=== PATIENT | female | born 1965 | race Caucasian/White ===

== ENCOUNTER 2021-07-27 11:28 | Observation (INO) | payer BC, MEDICARE ==
[2021-07-27] MEDS: Sodium Chloride 0.9% 1,000 ML IV SCH ×3 (11:33→20:03)
[2021-07-27] MEDS ORDERED: Sodium Chloride 0.9% 10 ML Syringe FLUSH PRN (11:36)
[2021-07-27] MEDS ORDERED: Naloxone 0.4 MG/ML SDV IVPUSH STA (11:38)
[2021-07-27] MEDS ORDERED: Labetalol 20 MG/4 ML Syringe IVPUSH ONE (11:46)
[2021-07-27] MEDS ORDERED: Ondansetron 4 MG/2 ML SDV IVPUSH ONE (11:49)
[2021-07-27] MEDS ORDERED: Naloxone 0.4 MG/ML SDV IVPUSH PRN (11:53)
[2021-07-27 12:05] LABS: ACETAMINOPHEN 12 ug/mL (<2)
[2021-07-27] MEDS ORDERED: OLANZapine 10 MG Vial IM STA (12:15)
[2021-07-27] MEDS ORDERED: LORazepam 2 MG/ML SDV IVPUSH STA ×2 (12:15→12:52)
--- NOTE | 2021-07-27 12:15 | EDM.PDOC ---
ED HPI GENERAL MEDICAL PROBLEM - General Stated Complaint: DRUG OD Time Seen by Provider: 07/27/21 11:35 Source of Information: Reports: Patient History Limitations: Reports: No Limitations - History of Present Illness INITIAL COMMENTS - FREE TEXT/NARRATIVE: Patient presented to the ED via a private car. As soon as she got in the ED she said she need Narcan because she overdosed with oxycontin. She doesn't know how much oxycontin she took. Upon further questioning she apparently injected herself with 2 narcan (1 at home and 1 en route to the ED) According to the she has a history of chronic low back pain and is being treated at a pain clinic in [place]. She is taking oxycodone 60 mg 3 times daily PRN. 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 - Related Data Allergies Allergy/AdvReac Type Severity Reaction Status Date / Time No Known Allergies Allergy Verified 07/27/21 11:46 Home Meds: Home Meds LORazepam [Ativan] 0.5 mg PO TID PRN 07/27/21 [History] oxyCODONE HCl [Oxycodone HCl] 10 mg PO Q8H PRN 07/27/21 [History] oxyCODONE HCl [Oxycontin] 60 mg PO TID 07/27/21 [History] ED ROS GENERAL - Review of Systems Review Of Systems: See Below Constitutional: Reports: No Symptoms HEENT: Reports: No Symptoms Respiratory: Reports: No Symptoms Cardiovascular: Reports: No Symptoms Endocrine: Reports: No Symptoms GI/Abdominal: Reports: No Symptoms : Reports: No Symptoms Musculoskeletal: Reports: No Symptoms Skin: Reports: No Symptoms Neurological: Reports: No Symptoms Psychiatric: Reports: Agitation, Anxiety ED EXAM, GENERAL - Physical Exam Exam: See Below Exam Limited By: No Limitations General Appearance: Anxious Eye Exam: Bilateral Eye: Proptosis Ears: Normal External Exam, Normal Canal Nose: Normal Inspection, Normal Mucosa, No Blood Throat/Mouth: Normal Inspection, Normal Lips, Normal Teeth Head: Atraumatic, Normocephalic Neck: Normal Inspection, Supple, Non-Tender, Full Range of Motion Respiratory/Chest: No Respiratory Distress, Lungs Clear, Normal Breath Sounds Cardiovascular: Normal Peripheral Pulses, Regular Rate, Rhythm, No Edema, No Gallop, No JVD, No Murmur, No Rub GI/Abdominal: Normal Bowel Sounds, Soft, Non-Tender, No Organomegaly Back Exam: Normal Inspection, Full Range of Motion Extremities: Normal Inspection, Normal Range of Motion, Non-Tender Neurological: Alert, Oriented, CN II-XII Intact Psychiatric: Anxious, Other (agitated) Course - Vital Signs Text/Narrative:: Lab/Head CT result was reviewed and discussed with patient and her NS 1 L bolus Labetalol 20 mg IV x1 Zofran 4 mg IV x1 Naracan 0.4 mg IV x1 Zyprexa 10 mg IM x1 Ativan 3 mg IV Precedex 50 microgram IV x1 Head CT-questionable lacunar and subcortical infarct recommend MRI Last Recorded V/S: Last Vital Signs Temp 36.4 C 07/27/21 18:23 Pulse 65 07/27/21 18:23 Resp 17 07/27/21 18:23 BP 130/63 07/27/21 18:23 Pulse Ox 95 07/27/21 18:23 - Orders/Labs/Meds Orders: Active Orders 24 hr Category Date Time Status Nrsg Assess: Viol-S.Dest Rest [RC] Q1H Care 07/27/21 11:45 Active THYROXINE (T4) FREE, DIRECT Stat Lab 07/27/21 11:40 Received HYDROmorphone [Dilaudid] Med 07/27/21 19:01 Active 1 mg IVPUSH Q2H PRN Sodium Chloride 0.9% [Saline Flush] Med 07/27/21 11:36 Active 10 ml FLUSH ASDIRECTED PRN Medication Orders Hydromorphone HCl (Hydromorphone 2 Mg/Ml Sdv) 1 mg IVPUSH Q2H PRN PRN Reason: Pain Sodium Chloride (Normal Saline) 1,000 mls @ 125 mls/hr IV ASDIRECTED SANDRA Sodium Chloride (Normal Saline) 1,000 mls @ 125 mls/hr IV ASDIRECTED SANDRA Sodium Chloride (Sodium Chloride 0.9% 10 Ml Syringe) 10 ml FLUSH ASDIRECTED PRN PRN Reason: Keep Vein Open Labs: Laboratory Tests 07/27/21 07/27/21 07/27/21 Range/Units 11:40 11:40 11:40 WBC 7.9 (3.0-10.3) x10-3/uL RBC 5.11 (3.60-5.20) x10(6)uL Hgb 16.9 H (11.4-15.5) g/dL Hct 50.0 H (34.2-48.2) % MCV 97.8 (76.7-100.5) fL MCH 33.1 (23.9-33.9) pg MCHC 33.9 (31.9-34.8) g/dL RDW 12.7 (12.3-16.5) % Plt Count 265 (151-488) x10(3)uL MPV 7.3 (7.1-12.4) fL Neut % (Auto) 69.0 (30.8-76.2) % Lymph % (Auto) 24.2 (18.4-52.1) % [place] % (Auto) 6.4 (4.4-15.7) % Eos % (Auto) 0.0 L (0.6-8.1) % Baso % (Auto) 0.4 (0.2-1.5) % Neut # (Auto) 5.4 (1.5-6.3) x10-3/uL Lymph # (Auto) 1.9 (1.0-4.4) x10-3/uL [place] # (Auto) 0.5 (0.3-1.0) x10-3/uL Eos # (Auto) 0.0 (0.0-0.8) x10-3/uL Baso # (Auto) 0.0 (0.0-0.1) x10-3/uL Sodium 142 (135-145) mmol/L Potassium 3.6 (3.5-5.3) mmol/L Chloride 105 (100-110) mmol/L Carbon Dioxide 23 (21-32) mmol/L BUN 12 (7-18) mg/dL Creatinine 0.6 (0.55-1.02) mg/dL Est Cr Clr Drug Dosing TNP Estimated GFR (MDRD) > 60 (>60) BUN/Creatinine Ratio 20.0 (9-20) Glucose 160 H (80-116) mg/dL Calcium 8.6 (8.6-10.2) mg/dL Total Bilirubin 0.4 (0.1-1.3) mg/dL AST 30 H (5-25) IU/L ALT 45 H (12-36) U/L Alkaline Phosphatase 111 (56-112) IU/L Total Protein 7.7 (6.0-8.0) g/dL Albumin 4.0 (3.5-5.2) g/dL Globulin 3.7 g/dL Albumin/Globulin Ratio 1.1 TSH, Ultra Sensitive 0.35 L (0.36-3.74) IU/mL Salicylates (<2.8) mg/dL Urine Opiates Screen (NEGATIVE) Ur Buprenorphine Scrn (NEGATIVE) Ur Oxycodone Screen (NEGATIVE) Urine Methadone Screen (NEGATIVE) Ur Propoxyphene Screen (NEGATIVE) Acetaminophen 12 (<2) ug/mL Ur Barbiturates Screen (NEGATIVE) Ur Tricyclics Screen (NEGATIVE) Ur Phencyclidine Scrn (NEGATIVE) Ur Amphetamine Screen (NEGATIVE) U Methamphetamines Scrn (NEGATIVE) U Benzodiazepines Scrn (NEGATIVE) U Cocaine Metab Screen (NEGATIVE) U Marijuana (THC) Screen (NEGATIVE) Ethyl Alcohol 0.07 H (<0.03) % SARS-CoV-2 RNA (ADOLPH) (NEGATIVE) 07/27/21 07/27/21 07/27/21 Range/Units 11:40 12:00 15:50 WBC (3.0-10.3) x10-3/uL RBC (3.60-5.20) x10(6)uL Hgb (11.4-15.5) g/dL Hct (34.2-48.2) % MCV (76.7-100.5) fL MCH (23.9-33.9) pg MCHC (31.9-34.8) g/dL RDW (12.3-16.5) % Plt Count (151-488) x10(3)uL MPV (7.1-12.4) fL Neut % (Auto) (30.8-76.2) % Lymph % (Auto) (18.4-52.1) % [place] % (Auto) (4.4-15.7) % Eos % (Auto) (0.6-8.1) % Baso % (Auto) (0.2-1.5) % Neut # (Auto) (1.5-6.3) x10-3/uL Lymph # (Auto) (1.0-4.4) x10-3/uL [place] # (Auto) (0.3-1.0) x10-3/uL Eos # (Auto) (0.0-0.8) x10-3/uL Baso # (Auto) (0.0-0.1) x10-3/uL Sodium (135-145) mmol/L Potassium (3.5-5.3) mmol/L Chloride (100-110) mmol/L Carbon Dioxide (21-32) mmol/L BUN (7-18) mg/dL Creatinine (0.55-1.02) mg/dL Est Cr Clr Drug Dosing Estimated GFR (MDRD) (>60) BUN/Creatinine Ratio (9-20) Glucose (80-116) mg/dL Calcium (8.6-10.2) mg/dL Total Bilirubin (0.1-1.3) mg/dL AST (5-25) IU/L ALT (12-36) U/L Alkaline Phosphatase (56-112) IU/L Total Protein (6.0-8.0) g/dL Albumin (3.5-5.2) g/dL Globulin g/dL Albumin/Globulin Ratio TSH, Ultra Sensitive (0.36-3.74) IU/mL Salicylates 5.5 (<2.8) mg/dL Urine Opiates Screen Positive H (NEGATIVE) Ur Buprenorphine Scrn Negative (NEGATIVE) Ur Oxycodone Screen Positive H (NEGATIVE) Urine Methadone Screen Negative (NEGATIVE) Ur Propoxyphene Screen Negative (NEGATIVE) Acetaminophen (<2) ug/mL Ur Barbiturates Screen Negative (NEGATIVE) Ur Tricyclics Screen Negative (NEGATIVE) Ur Phencyclidine Scrn Negative (NEGATIVE) Ur Amphetamine Screen Negative (NEGATIVE) U Methamphetamines Scrn Negative (NEGATIVE) U Benzodiazepines Scrn Positive H (NEGATIVE) U Cocaine Metab Screen Negative (NEGATIVE) U Marijuana (THC) Screen Positive H (NEGATIVE) Ethyl Alcohol (<0.03) % SARS-CoV-2 RNA (ADOLPH) Negative (NEGATIVE) Meds: Medications Generic Name Dose Route Start Last Admin Trade Name Freq PRN Reason Stop Dose Admin Hydromorphone HCl 1 mg 07/27/21 19:01 Hydromorphone 2 Mg/Ml Sdv IVPUSH Q2H PRN Pain Sodium Chloride 1,000 mls @ 125 mls/hr 07/27/21 18:30 Normal Saline IV ASDIRECTED SANDRA Sodium Chloride 1,000 mls @ 125 mls/hr 07/27/21 18:30 Normal Saline IV ASDIRECTED SANDRA Sodium Chloride 10 ml 07/27/21 11:36 Sodium Chloride 0.9% 10 Ml Syringe FLUSH ASDIRECTED PRN Keep Vein Open Discontinued Medications Generic Name Dose Route Start Last Admin Trade Name Pretty PRN Reason Stop Dose Admin Sodium Chloride 1,000 mls @ 999 mls/hr 07/27/21 11:45 07/27/21 13:30 Normal Saline IV 50 mls/hr ASDIRECTED SANDRA Infusion Sodium Chloride 1,000 mls @ 125 mls/hr 07/27/21 18:30 Normal Saline IV ASDIRECTED SANDRA Ketorolac Tromethamine 30 mg 07/27/21 12:56 07/27/21 13:00 Ketorolac 30 Mg/Ml Sdv IVPUSH 07/27/21 12:57 30 mg NOW STA Administration Ketorolac Tromethamine Confirm 07/27/21 12:57 07/27/21 13:08 Ketorolac 30 Mg/Ml Sdv Administered 07/27/21 12:58 Not Given Dose 30 mg .ROUTE .STK-MED ONE Labetalol HCl 20 mg 07/27/21 11:46 07/27/21 16:23 Labetalol 20 Mg/4 Ml Syringe IVPUSH 07/27/21 11:47 Not Given ONETIME ONE Protocol Lorazepam 1 mg 07/27/21 12:15 07/27/21 12:22 Lorazepam 2 Mg/Ml Sdv IVPUSH 07/27/21 12:16 1 mg NOW STA Administration Lorazepam 2 mg 07/27/21 12:52 07/27/21 12:53 Lorazepam 2 Mg/Ml Sdv IVPUSH 07/27/21 12:53 2 mg NOW STA Administration Morphine Sulfate 4 mg 07/27/21 12:56 07/27/21 16:22 Morphine 4 Mg/Ml Vial IVPUSH 07/27/21 12:57 Not Given NOW STA Morphine Sulfate 5 mg 07/27/21 13:02 07/27/21 13:03 Morphine 10 Mg/Ml Sdv IVPUSH 07/27/21 13:03 5 mg ONETIME ONE Administration Naloxone HCl 0.4 mg 07/27/21 11:38 07/27/21 11:34 Naloxone 0.4 Mg/Ml Sdv IVPUSH 07/27/21 11:39 0.4 mg NOW STA Administration Naloxone HCl 0.4 mg 07/27/21 11:53 Naloxone 0.4 Mg/Ml Sdv IVPUSH ONETIME PRN Other Olanzapine 10 mg 07/27/21 12:15 07/27/21 12:23 Olanzapine 10 Mg Vial IM 07/27/21 12:16 10 mg NOW STA Administration Ondansetron HCl 4 mg 07/27/21 11:49 07/27/21 11:49 Ondansetron 4 Mg/2 Ml Sdv IVPUSH 07/27/21 11:50 4 mg ONETIME ONE Administration Departure - Departure Time of Disposition: 15:00 Disposition: Refer to Observation Condition: Good Clinical Impression: Opioid withdrawal, Chronic low back pain - Discharge Information Sepsis Event Note (ED) - Focused Exam Vital Signs: Vital Signs Temp Pulse Resp BP Pulse Ox 07/27/21 11:28 36.2 C 89 20 200/115 H 99 - My Orders Last 24 Hours: My Active Orders 07/27/21 11:36 Sodium Chloride 0.9% [Saline Flush] 10 ml FLUSH ASDIRECTED PRN 07/27/21 11:40 THYROXINE (T4) FREE, DIRECT Stat 07/27/21 11:45 Nrsg Assess: Dez-S.Dest Rest [RC] Q1H 07/27/21 19:01 HYDROmorphone [Dilaudid] 1 mg IVPUSH Q2H PRN - Assessment/Plan Last 24 Hours: My Active Orders 07/27/21 11:36 Sodium Chloride 0.9% [Saline Flush] 10 ml FLUSH ASDIRECTED PRN 07/27/21 11:40 THYROXINE (T4) FREE, DIRECT Stat 07/27/21 11:45 Nrsg Assess: Viol-S.Dest Rest [RC] Q1H 07/27/21 19:01 HYDROmorphone [Dilaudid] 1 mg IVPUSH Q2H PRN
--- NOTE | 2021-07-27 12:45 | PCM.SN.2 ---
- Free Text/Narrative Note: Was called to ER for this patient with a diagnosis of possible Oxycodone overdose. Patient very agitated and thrashing on cart. With several personel holding patient, I started a 20 jelco per sterile technique in right antecubital and secured site well, flushed with 10 cc's of salin with ease, narcan given immediately by RN per physicians order. I gave her Labatalol 20 mgs IV slowly at 1150, per Physician orders, Blood pressure 175/103. I restarted her IV with a 20 jelco at 1200 per sterile technique due to poor flow, flushed with 10cc's of saline with ease.
[2021-07-27] MEDS ORDERED: Ketorolac 30 MG/ML SDV IVPUSH STA (12:56)
[2021-07-27] MEDS ORDERED: Morphine 4 MG/ML VIAL IVPUSH STA (12:56)
[2021-07-27] MEDS ORDERED: Ketorolac 30 MG/ML SDV ONE (12:57)
--- NOTE | 2021-07-27 13:00 | PCM.SN.2 ---
- Free Text/Narrative Note: Was called to Trauma one to restart IV. #18 jelco started in left lower saphanous per sterile technique, secured and flushed with 10 cc's of normal saline.
[2021-07-27] MEDS ORDERED: Morphine 10 MG/ML SDV IVPUSH ONE (13:02)
--- NOTE | 2021-07-27 13:24 | CR ---
CHEST ONE VIEW INDICATION: Short of breath. AP portable upright view of the chest 07/27/21 - no comparisons. Heart, mediastinum and bony thorax are unremarkable. There is a nodular density at the right lung base, which may represent a nipple shadow - correlate clinically. A definite active infiltrate or effusion was not identified. Overlying EKG leads are noted. IMPRESSION: No definite acute process - findings as noted above. MTDD
[2021-07-27] MEDS ORDERED: Midazolam 1 MG/ML 2 ML SDV IV ONE (13:30)
[2021-07-27] MEDS ORDERED: HYDROmorphone 2 MG/ML SDV IV ONE (13:30)
[2021-07-27] MEDS ORDERED: Dexmedetomidine 200 MCG/2 ML SDV IV ONE (13:30)
[2021-07-27] MEDS ORDERED: Labetalol 100 MG/20 ML MDV IV ONE (13:30)
[2021-07-27] MEDS ORDERED: Propofol 200 MG/20 ML SDV IV ONE (13:30)
--- NOTE | 2021-07-27 15:26 | CT ---
CT HEAD WITHOUT CONTRAST INDICATION: Agitation. Spiral 3.75 mm axial sections were obtained through the brain without contrast with axial, sagittal and coronal reconstructions 07/27/21 - no comparisons. Total exam DLP was 1348.07 mGy/cm. The paranasal sinuses and mastoid air cells are well aerated. No cranial abnormality was identified. The orbits appear to be intact. Minimal internal carotid artery calcification is suggested. There is an appearance suggesting a lacunar infarct at the basilar portion of the basal ganglia on the left. Prominent distal occipital horn of the right lateral ventricle is suggested. There appears to be a low density abnormality in the anterior limb of the left internal capsule compatible with a lacunar infarct, possibly evolving. A subcortical infarct is noted at the frontal white matter on the left with an area of apparent thrombotic CVA suggested in the frontoparietal area on the left. This may represent an acute finding - evolving thrombotic CVA. The norton/white matter interface was otherwise unremarkable. No bleeding site or hematoma was seen. There is no shift of midline structures or ventricular abnormalities. There is also a cortical abnormal area of decreased density in the posterior parietal area on the left which may represent a thrombotic CVA focally in that area. Findings were compared with an MRI from 10/22/08. The areas of abnormal decreased density on the left appear all to be new compared with 2008. IMPRESSION: 1. Cerebrovascular disease with possible acute/evolving thrombotic CVA in the left frontoparietal area. Additional posterior left parietal norton matter decreased density focally suggests an additional area of evolving thrombotic CVA or previous thrombotic CVA. 2. Subcortical infarct right frontal likely on the basis of microvascular disease. 3. Possible evolving lacunar infarct anterior limb of left internal capsule. 4. Possible lacunar infarct inferior portion of the left basal ganglia. Report was called to Dr. Norwood at 1453 hours 07/27/21. [facility]
--- NOTE | 2021-07-27 16:06 | PCM.SN.2 ---
- Free Text/Narrative Note: a Administered Labatalol [address] Norwood's orders at 1155 for hypertention.
[2021-07-27] MEDS ORDERED: Sodium Chloride 0.9% 1,000 ML IV SCH ×3 (18:30)
[2021-07-28] MEDS: Sodium Chloride 0.9% 1,000 ML IV SCH (03:47)
[2021-07-28] MEDS: HYDROmorphone 2 MG/ML SDV IVPUSH PRN ×2 (03:50→06:11)
--- NOTE | 2021-07-29 14:30 | DISCH ---
DISCHARGE DATE: 07/28/2021 DISCHARGE DIAGNOSIS: Opiate misuse overuse or inadequate intervention. Leandra Greene is a 56-year-old female who was admitted late afternoon on 07/27/2021. Presented to the ER with issues of narcotic opiate overuse. Please see admitting history and physical, clinical findings, ER intervention. She was hospitalized for observation. At the time she got to her medical bed, she was stable, comfortable, vital signs were stable. Please see my HPI. She was watched overnight and she was given 1 mg of Dilaudid at 4 a.m., 1 mg at 6 a.m. At the time of my examination, she was stable, appropriate, and orientated. PHYSICAL EXAMINATION: VITAL SIGNS: Stable. NEUROLOGIC: The patient is orientated to time, place, and person. Speech was fluent. Cranial nerves 2 through 12 were intact. No focal findings. I spoke at length the implications. Medications on board, great quantity. Being followed by [facility] provider. Document muscular pill daily dispenser morning, afternoon, and evening, 3 opportunities for medications through the day, and a p.r.n. as a 4th opportunity. Discussed the implications of benzodiazepines and narcotics, implications and concerns. Was discharged in good condition with recommendations for close followup as she is seen monthly by the [facility] provider. SURGICAL PROCEDURES: None. CONSULTATION: None. DISCHARGE PLANNIN minutes. /[id number] VAISHNAVI/CLARISSA
--- NOTE | 2021-07-29 14:30 | HP ---
ADMISSION DATE: 07/27/2021 Opiate Disturbance. Leandra Greene is a 56-year-old female, a [place] resident, was seen and evaluated urgently at [facility] ER under the care of Dr. Norwood. She presented in a private car, sharing that she had needed Narcan "overdosed" with her OxyContin. Uncertain of the amount, circumstances, or timing. Presently, on: 1. OxyContin 60 mg t.i.d. dose. 2. Oxycodone 10 mg t.i.d. p.r.n. 3. Ativan 0.5 mg t.i.d. p.r.n. Had injected herself nasally. Provided 2 Narcan doses, one at home and one en route. She has history of chronic low back pain, being followed by pain providers in the [facility]. She has also been sleep deprived, a little unsettled in terms of well-being, had a recent gastrointestinal illness. ALLERGIES: No known allergies. PAST MEDICAL HISTORY: Significant for previous cholecystectomy, hysterectomy with intact ovaries, appendectomy, tonsillectomy and adenoidectomy as a child. Has no other chronic illnesses, other operative procedures, hospitalizations, unusual childhood diseases, major injuries, or fractures. She also gives a history of a "CVA or TIA" at age 45. She has a "hole" in her heart. She has been seen by Cardiology and multiple providers. Nothing of surgical opportunities or intervention. 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 . Son 27, daughter 29. No grandchildren. One pack per day smoker. No alcohol. No other illicit drug use. FAMILY HISTORY: Mom of COPD at age 86, Dad 89 of old age. Four brothers, 2 sisters in good health. No family historyof early heart disease, diabetes mellitus, or inheritable cancer. REVIEW OF SYSTEMS: CONSTITUTIONAL: Unsettled at the time of our observation at 1800 hours on 07/27. No other physical complaints other than the impactful issue. Should be noted while in the emergency room, she had a great conflictual event. Became incredibly agitated. She was given second dose of Narcan, a dose of labetalol for blood pressure, and 10 mg of Zyprexa. When seen by myself, she was returning to a more normal state of well-being. PHYSICAL EXAMINATION: VITAL SIGNS: 36.4, 70, 119/52, 17, 96%. GENERAL: Young lady, more cooperative, conversant, a bit sedated. HEENT: Funduscopic benign. Conjunctivae clear. Bright tympanic membranes. Clear nasal discharge. Mouth and oropharynx clear. NECK: Benign. Thyroid small. CHEST: On auscultation, clear in all lung wilkes. HEART: On auscultation, no ectopy or murmur. ABDOMEN: Benign. No hepatosplenomegaly. Multiple surgical scars. PELVIC: Deferred. RECTAL: Deferred. EXTREMITIES: Well perfused. NEUROMUSCULAR: Intact. NEUROLOGIC: Cranial nerves 2-12 are intact. Reflex symmetric. Sensation appropriate. Speech fluent. SKIN: No lesions, rashes, eruptions, or moles. ASSESSMENT: Acute confusional state with conflictual behaviors, presence or absence of narcotic overdose uncertain. PLAN: Issues, implications, concerns, safety, medicines. Will observe overnight. We will make a dedicated plan to proceed accordingly. Urine drug screen positive for opiates and benzodiazepines. /[id number] /CLARISSA
== END 2021-07-28 09:35 | disposition home or self-care (01) ==
LOC: FB.ED 11:28 → FB.MS 17:44
PROVIDERS: ADMIT Family Medicine; ATTEND Family Medicine
DX: F11.13 Opioid abuse with withdrawal (principal); R41.0 Disorientation, unspecified; M54.5 Low back pain; G89.29 Other chronic pain; F17.210 Nicotine dependence, cigarettes, uncomplicated; Z20.822 Contact with and (suspected) exposure to COVID-19; Z86.73 Personal history of transient ischemic attack (TIA), and cerebral infarction without residual deficits
CPT/HCPCS: 36410; 36415; 70450; 71045; 80053; 80143; 80179; 80307; 84439; 84443; 85025; 87635; 96372; 96374; 96375; 96376; 99285; G0378; J1170; J1885; J2060; J2250; J2270; J2310; J2405; J2704; J3490; J7030; U0002

== ENCOUNTER 2023-02-12 05:00 | Emergency (ER) | payer BC, MEDICARE ==
[2023-02-12] MEDS ORDERED: Ondansetron 4 MG Tab.DIS PO ONE (05:10)
[2023-02-12] MEDS ORDERED: Ondansetron 4 MG/2 ML SDV IVPUSH ONE (05:50)
[2023-02-12] MEDS ORDERED: Sodium Chloride 0.9% 1,000 ML IV ONE (05:50)
[2023-02-12] MEDS ORDERED: diphenhydrAMINE 50 MG/ML SDV IVPUSH ONE (06:00)
[2023-02-12] MEDS ORDERED: fentaNYL 100 MCG/2 ML SDV IV ONE (06:15)
[2023-02-12 07:03] LABS: ESTIMATED GFR 86 mL/min (>60)
[2023-02-12] MEDS ORDERED: Iopamidol 755 Mg/ML 100 ML Bottle IV ONE (07:38)
[2023-02-12] MEDS ORDERED: HYDROmorphone 2 MG/ML SDV IVPUSH ONE ×2 (09:15→09:54)
[2023-02-12] MEDS: Sodium Chloride 0.9% 10 ML Syringe FLUSH PRN ×2 (09:22→09:24)
[2023-02-12] MEDS ORDERED: Sodium Chloride 0.9% 1,000 ML IV SCH (10:00)
== END 2023-02-12 10:32 ==
LOC: FB.ED 05:00
DX: K83.1 Obstruction of bile duct (principal); Z90.710 Acquired absence of both cervix and uterus; Z90.49 Acquired absence of other specified parts of digestive tract
CPT/HCPCS: 36415; 71275; 74177; 80053; 81001; 83605; 83690; 85025; 85379; 86140; 87040; 96374; 96376; 99285; 99285-25; J1170; J1200; J2405; J3010; J3490; J7030; Q0162; Q9967